=== PATIENT | female | born 1955 | race Caucasian/White ===

== ENCOUNTER → 2017-03-18 | Outpatient (CLI) | payer OTHER ==
--- NOTE | 2017-03-18 12:27 | DIAGNOSTIC IMAGING REPORT ---
PROCEDURE: XR LUMBAR SPINE 2 OR 3 VIEWS INDICATION: CERVICAL AND LUMBAR PX TECHNIQUE: Three views COMPARISON: None. FINDINGS: Osteopenia but no fracture. Grade 1 L4-5 anterolisthesis with mild disc space narrowing. No suspicious osseous lesions. Soft tissues are unremarkable. IMPRESSION: 1. Grade 1 L4-5 anterolisthesis with mild disc space narrowing. 2. Osteopenia
--- NOTE | 2017-03-18 12:30 | DIAGNOSTIC IMAGING REPORT ---
PROCEDURE: XR CERVICAL SPINE 2 OR 3 VIEW INDICATION: CERVICAL AND LUMBAR PX TECHNIQUE: Three views. COMPARISON: None. FINDINGS: Normal alignment without fracture. Straightening of the cervical spine. Severe C5-6 and C6 disc space narrowing with large spurs. Odontoid, lateral masses of C1 and prevertebral soft tissues are normal. IMPRESSION: 1. Severe C5-6 and C6-7 degenerative changes 2. Straightening of the cervical spine suggestive of muscular spasm.
== END ==
LOC: XR SRH 10:58
DX: M43.16 Spondylolisthesis, lumbar region (principal); M47.812 Spondylosis without myelopathy or radiculopathy, cervical region; M85.88 Other specified disorders of bone density and structure, other site